=== PATIENT | male | born 1990 | race American Indian/Alaskan Native ===

== ENCOUNTER 2020-04-28 18:59 | Inpatient (IN) | payer OTHER, SELFPAY ==
--- NOTE | 2020-04-28 20:47 | XRay Report ---
CHEST 2 VIEWS 2020 INDICATION / CLINICAL INFORMATION: cough, tachycardia COMPARISON: None available. FINDINGS: SUPPORT DEVICES: None. HEART / MEDIASTINUM: Heart size appears mildly prominent but there is a very poor degree of inspirati on which may influence this appearance. LUNGS / PLEURA: Poor degree of inspiration is seen on 2 images making evaluation more difficult. Basi lar atelectatic changes and crowding of vessels are seen. There is a question of slight perihilar inf iltrate on the right. No dense areas of consolidation are seen. No obvious pleural effusions are note d. Lateral view is blurred by motion. No pneumothorax. ADDITIONAL FINDINGS: No significant additional findings. IMPRESSION: No definite acute infiltrates are seen but this is a limited examination as above. Basila r atelectatic changes are noted. I cannot exclude the possibility of pneumonitis. Follow-up is sugges hema. Signer Name: Marino Armsrtong MD Signed: 04/28/2020 8:43 PM Workstation Name: [id number]
[2020-04-28 22:00] LABS: Basophils % (Auto) 0.4 % (0.0-1.8); Hematocrit 41.1 % (35.5-45.6); Hemoglobin 13.1 gm/dl (11.8-15.2); Lymphocytes # (Auto) 1.3 K/mm3 (1.2-5.4); Lymphocytes % (Auto) 27.1 % (13.4-35.0); Mean Corpuscular HGB Conc 32 % (32-34); Mean Corpuscular Volume 81 fl (84-94); Monocytes # (Auto) 0.4 K/mm3 (0.0-0.8); Monocytes % (Auto) 8.6 % (0.0-7.3); Platelet Count 120 K/mm3 (140-440); Red Blood Count 5.06 M/mm3 (3.65-5.03); Red Cell Distribution Width 13.7 % (13.2-15.2)
[2020-04-28] MEDS ORDERED: ACETAMINOPHEN 500 MG TAB PO ONE (22:16)
--- NOTE | 2020-04-28 22:17 | Emergency Department Report ---
ED General Adult HPI - General Chief complaint: Upper Respiratory Infection Stated complaint: COUGH PUI?: Yes Time Seen by Provider: 04/28/20 22:13 Source: patient, RN notes reviewed Mode of arrival: Ambulatory Limitations: No Limitations - History of Present Illness Initial comments: Please note that for the entire history and physical examination, I had on complete personal protective equipment. Please note that secondary to limitations in the current supply chain, this department in hospital at this moment does not have disposable stethoscope. The patient is a 29-year-old gentleman who is not known to myself previously. He denies chronic medical conditions and reports that he does not have a primary care doctor. He presents to the ER with 2 to 3 days of cough, and "I cannot keep anything down." When clarified, he reports that he is not vomiting, he is not sure if he has a fever, has not lost taste, has not lost smell, but he has a decreased appetite. There is no complaint of headache, neck pain, chest pain, abdominal pain, body aches, irritative, obstructive urinary symptoms. The patient indicates that he feels "weak". He reports that he has been self isolating and self quarantining and has not been exposed to [place] that he is aware of. He is not nauseous at this time -: days(s) Severity scale (0 -10): 0 Consistency: constant Improves with: rest Worsens with: eating, movement - Related Data Allergies Allergy/AdvReac Type Severity Reaction Status Date / Time No Known Allergies Allergy Verified 04/28/20 19:23 ED Review of Systems ROS: Stated complaint: COUGH Other details as noted in HPI Constitutional: malaise, weakness Eyes: denies: eye discharge ENT: congestion Respiratory: cough Cardiovascular: denies: chest pain Gastrointestinal: denies: abdominal pain, nausea, vomiting, diarrhea, constipation Genitourinary: denies: dysuria Musculoskeletal: denies: arthralgia, myalgia Neurological: weakness ED Past Medical Hx - Past Medical History Previous Medical History?: No - Surgical History Past Surgical History?: No - Social History Smoking Status: Never Smoker ED Physical Exam - General Limitations: No Limitations General appearance: alert, in no apparent distress - Head Head exam: Present: atraumatic, normocephalic - Eye Eye exam: Present: normal appearance, EOMI. Absent: nystagmus - ENT ENT exam: Present: normal exam, mucous membranes moist, normal external ear exam - Neck Neck exam: Present: normal inspection, full ROM. Absent: tenderness, meni ngismus - Respiratory Respiratory exam: Present: other (Auscultation not performed secondary to lack of disposable stethoscope). Absent: respiratory distress, stridor, chest wall tenderness, accessory muscle use - Cardiovascular Cardiovascular Exam: Present: regular rate, other (Auscultation not performed secondary to lack of disposable stethoscope). Absent: JVD - GI/Abdominal GI/Abdominal exam: Present: soft. Absent: distended, tenderness, guarding, rebound, rigid, pulsatile mass - Rectal Rectal exam: Present: deferred - Extremities Exam Extremities exam: Present: normal inspection, full ROM, normal capillary refill, other (2+ pulses noted in the bilateral upper and lower extremities. There is no palpable cord. negative Homans sign. Muscular compartments are soft. The pelvis is stable.). Absent: pedal edema, calf tenderness - Back Exam Back exam: Present: normal inspection, full ROM. Absent: tenderness, CVA tenderness (R), CVA tenderness (L), paraspinal tenderness, vertebral tenderness - Neurological Exam Neurological exam: Present: alert, oriented X3, normal gait, other (No facial droop. Tongue midline. Extraocular movements intact bilaterally. Facial sensation intact to light touch in V1, V2, V3 distribution bilaterally. 5 and a 5 strength in 4 extremities. Sensation intact to light touch in 4 extremities.). Absent: motor sensory deficit - Psychiatric Psychiatric exam: Present: normal affect, normal mood - Skin Skin exam: Present: warm, dry, intact, normal color. Absent: rash ED Course Vital Signs 04/28/20 04/28/20 04/28/20 19:21 21:26 22:12 Temperature 98.7 F 102.8 F H Pulse Rate 117 H 94 H Respiratory 18 22 20 Rate Blood Pressure 131/87 139/86 Blood Pressure 139/86 [Right] O2 Sat by Pulse 96 96 97 Oximetry - Reevaluation(s) Reevaluation #1: 04/28/20 22:33 Differential diagnosis, including but not limited to: Novel coronavirus, viral pneumonia versus bacterial pneumonia Assessment and plan: 29-year-old gentleman with fever and tachycardia, nonspecific constitutional symptoms highly suspicious for COVID pathology. At the moment, heart rate 99 to 105 bpm. Saturating at 95, 96% on room air. Laboratory studies were ordered prior to my personal evaluation. They are pe nding at this time. Patient is counseled appropriately and expectantly. He will be given a trial of ambulation. If the patient does not desaturate, we would consider him suitable for trial of outpatient management. Extensive discussion had with patient regarding natural history of COVID. Reevaluation #2: 04/28/20 22:56 During exercise test on portable pulse oximetry, the patient desaturated to 87% on room air. He therefore meets criteria for hospitalization for hypoxemia, likely secondary to COVID pneumonia. Antibiotics, blood cultures, lactic acid ordered. We appreciate that the patient meets systemic inflammatory response syndrome criteria. However, COVID patients are prone to developing acute respiratory distress syndrome, and may experience adverse outcomes with excessive fluid bolus. Therefore, the patient will be given judicious fluid. We will also send laboratory studies to risk stratify patient for cytokine storm. Hospital physician, Dr. David Ball to admit Discussed plan of care with patient, who verbalized understanding, and who is amenable to this plan of care 04/28/20 22:57 - Consultations Consultation #1: 04/28/20 23:[address] Thorpe of infectious disease. She recommends Solu-Medrol 40 mg every 8 hours, type and screen in case patient qualifies for convalescent plasma, supportive care, indicates her group will follow in consultation. ED Medical Decision Making - Lab Data Result diagrams: 04/28/20 21:12 04/28/20 21:12 Vital Signs 04/28/20 04/28/20 04/28/20 19:21 21:26 22:12 Temperature 98.7 F 102.8 F H Pulse Rate 117 H 94 H Respiratory 18 22 20 Rate Blood Pressure 131/87 139/86 Blood Pressure 139/86 [Right] O2 Sat by Pulse 96 96 97 Oximetry Lab Results 04/28/20 Range/Units 21:12 WBC 4.7 (4.5-11.0) K/mm3 RBC 5.06 H (3.65-5.03) M/mm3 Hgb 13.1 (11.8-15.2) gm/dl Hct 41.1 (35.5-45.6) % MCV 81 L (84-94) fl MCH 26 L (28-32) pg MCHC 32 (32-34) % RDW 13.7 (13.2-15.2) % Plt Count 120 L (140-440) K/mm3 Lymph % (Auto) 27.1 (13.4-35.0) % Day % (Auto) 8.6 H (0.0-7.3) % Eos % (Auto) 0.0 (0.0-4.3) % Baso % (Auto) 0.4 (0.0-1.8) % Lymph # 1.3 (1.2-5.4) K/mm3 Day # 0.4 (0.0-0.8) K/mm3 Eos # 0.0 (0.0-0.4) K/mm3 Baso # 0.0 (0.0-0.1) K/mm3 Seg Neutrophils % 63.9 (40.0-70.0) % Seg Neutrophils # 3.0 (1.8-7.7) K/mm3 - Radiology Data Radiology results: report reviewed, image reviewed Print Report Referring Physician: ENID VILLEGAS Patient Name: ELIZABET HOUSE Date of : 1990 Sex: Male Report Date: 2020-04-28 Report Status: [place] [address] XRay Report Signed Patient: ELIZABET HOUSE MR#: [id number] : [birth year] Acct:[id number] Age/Sex: 29 / M ADM Date: 04/28/20 Loc: ED Attending Dr: Ordering Physician: ENID VILLEGAS Date of Service: 04/28/20 Procedure(s): XR chest routine 2V Accession Number(s): [id number] cc: ENID VILLEGAS Fluoro Time In Minutes: CHEST 2 VIEWS 2020 INDICATION / CLINICAL INFORMATION: cough, tachycardia COMPARISON: None available. FINDINGS: SUPPORT DEVICES: None. HEART / MEDIASTINUM: Heart size appears mildly prominent but there is a very poor degree of inspiration which may influence this appearance. LUNGS / PLEURA: Poor degree of inspiration is seen on 2 images making evaluation more difficult. Basilar atelectatic changes and crowding of vessels are seen. There is a question of slight p erihilar infiltrate on the right. No dense areas of consolidation are seen. No obvious pleural effusions are noted. Lateral view is blurred by motion. No pneumothorax. ADDITIONAL FINDINGS: No significant additional findings. IMPRESSION: No definite acute infiltrates are seen but this is a limited examination as above. Basilar atelectatic changes are noted. I cannot exclude the possibility of pneumonitis. Follow-up is suggested. Signer Name: Marino Armstrong MD Signed: 04/28/2020 8:43 PM Workstation Name: [id number] Transcribed By: NEYMAR Dictated By: Marino Armstrong MD Electronically Authenticated By: Marino Armstrong MD Signed Date/Time: 04/28/202042 DD/ 40 TD /TT: Critical Care Time: Yes Critical care time in (mins) excluding proc time.: 35 Critical care attestation.: If time is entered above; I have spent that time in minutes in the direct care of this critically ill patient, excluding procedure time. Critical Care Time: Critical care time includes time spent donning and doffing personal protective equipment, performing history, physical examination, decontaminating after patient encounter, review of laboratory studies, radiographic studies, and managing a patient with signs and symptoms highly suspicious for novel coronavirus ED Disposition Clinical Impression: Suspected 2019 novel coronavirus infection, Hypoxia, SIRS (systemic inflammatory response syndrome) Disposition: -09 OP ADMIT IP TO THIS HOSP Is pt being admited?: Yes Does the pt Need Aspirin: No Condition: Good Referrals: PRIMARY CARE, [Primary Care Provider] - 3-5 Days
[2020-04-28 22:34] LABS: BUN/Creatinine Ratio 11; Blood Urea Nitrogen 14 mg/dL (9-20); Calcium 8.6 mg/dL (8.4-10.2)
[2020-04-28 22:35] LABS: Alanine Aminotransferase 32 units/L (7-56); Albumin 4.3 g/dL (3.9-5); Hemolysis Index 2
[2020-04-28] MEDS ORDERED: cefTRIAXone/NS 1 GM/50 ML 1 GM/50 ML BAG IV ONE (22:55)
[2020-04-28] MEDS ORDERED: AZITHROMYCIN 250 MG TAB PO ONE (22:56)
[2020-04-28] MEDS ORDERED: ONDANSETRON 4 MG/2 ML INJ IV PRN (23:53)
[2020-04-28] MEDS ORDERED: ACETAMINOPHEN 325 MG TAB PO PRN (23:53)
[2020-04-28] MEDS ORDERED: MAGNESIUM HYDROXIDE (MOM) ORAL LIQD UDC PO PRN (23:53)
--- NOTE | 2020-04-29 00:04 | History and Physical Report ---
History of Present Illness Date of examination: 04/28/20 Date of admission: 04/28/20 22:58 Chief complaint: Weakness Fever History of present illness: 29-year-old male presenting to the emergency room today with a 2-day history of cough, nausea , fever and generalized body weakness. Patient denies any sick contacts, no recent travel, and no contact with anyone with COVID-19. Patient denies any chest pain, no abdominal pain, denies any vomiting, no hematuria or dysuria. Denies any headache or dizziness. He has had loss of appetite. Work-up in the emergency room today shows possible pneumonitis. Patient was also hypoxic. Past History Past Medical History: No medical history Past Surgical History: No surgical history Social history: no significant social history Family history: no significant family history Medications and Allergies Allergies Allergy/AdvReac Type Severity Reaction Status Date / Time No Known Allergies Allergy Verified 04/28/20 19:23 Home Medications Medication Instructions Recorded Confirmed Last Taken Type No Known Home Medications [No 04/28/20 04/28/20 Unknown History Reported Home Medications] Active Meds: Active Medications Acetaminophen (Tylenol) 650 mg PO Q4H PRN PRN Reason: Pain MILD(1-3)/Fever >100.5/CESAR Enoxaparin Sodium (Enoxaparin) 40 mg SUB-Q QDAY@2200 KAYCE Sodium Chloride (Nacl 0.9% 1000 Ml) 1,000 mls @ 75 mls/hr IV DIRECT KAYCE Azithromycin 500 mg/ Sodium (Chloride) 250 mls @ 250 mls/hr IV Q24HR KAYCE; Protocol Ceftriaxone Sodium (Rocephin/Ns 2 Gm/100 Ml) 2 gm in 100 mls @ 200 mls/hr IV Q24HR KAYCE; Protocol Magnesium Hydroxide (Milk Of Magnesia) 30 ml PO Q4H PRN PRN Reason: Constipation Methylprednisolone Sodium Succinate (Solu-Medrol) 40 mg IV Q8H KAYCE Ondansetron HCl (Zofran) 4 mg IV Q8H PRN PRN Reason: Nausea And Vomiting Sodium Chloride (Sodium Chloride Flush Syringe 10 Ml) 10 ml IV BID KAYCE Sodium Chloride (Sodium Chloride Flush Syringe 10 Ml) 10 ml IV PRN PRN PRN Reason: LINE FLUSH Review of Systems Constitutional: fever, fatigue, weakness, no chills Ears, nose, mouth and throat: no nasal congestion, no sore throat Cardiovascular: no chest pain, no palpitations Respiratory: no cough, no shortness of breath Gastrointestinal: no abdominal pain, no nausea, no vomiting, no diarrhea Genitourinary Male: no dysuria, no hematuria, no flank pain Musculoskeletal: no neck pain, no low back pain Integumentary: no rash, no pruritis Neurological: no headaches, no confusion Psychiatric: no anxiety, no depression Exam - Constitutional Vitals: Temp Pulse Resp BP Pulse Ox 100.5 F H 103 H 20 123/79 94 04/28/20 23:00 04/28/20 23:00 04/28/20 23:52 04/28/20 23:00 04/28/20 23:00 General appearance: Present: no acute distress, well-nourished - EENT Eyes: Present: PERRL, EOM intact ENT: hearing intact, clear oral mucosa, dentition normal - Neck Neck: Present: supple, normal ROM - Respiratory Respiratory effort: normal Respiratory: bilateral: diminished - Cardiovascular Rhythm: regular Heart Sounds: Present: S1 & S2. Absent: gallop, systolic murmur, diastolic murmur, rub - Extremities Extremities: no ischemia, pulses intact, No edema, Full ROM - Abdominal General gastrointestinal: Present: soft, non-tender, non-distended, normal bowel sounds - Integumentary Integumentary: Present: clear, warm, dry, normal turgor. Absent: jaundice, rash - Musculoskeletal Musculoskeletal: strength equal bilaterally - Psychiatric Psychiatric: appropriate mood/affect, intact judgment & insight - Neurologic Neurologic: no focal deficits, moves all extremities Results - Labs CBC & Chem 7: 04/28/20 21:12 04/29/20 00:02 Labs: Abnormal lab results 04/28/20 04/28/20 Range/Units 21:12 21:12 RBC 5.06 H (3.65-5.03) M/mm3 MCV 81 L (84-94) fl MCH 26 L (28-32) pg Plt Count 120 L (140-440) K/mm3 [place] % (Auto) 8.6 H (0.0-7.3) % AST 56 H (5-40) units/L Alkaline Phosphatase 32 L (35-129) units/L Assessment and Plan - Patient Problems (1) Suspected 2019 novel coronavirus infection Current Visit: Yes Status: Acute Plan to address problem: Patient has been placed on pulmonary and droplet precautions. Place a consult to infectious disease for further evaluation and recommendation. History started on empiric IV antibiotics for possible pneumonia. Patient is also placed on IV Solu-Medrol. (2) Hypoxia Current Visit: Yes Status: Acute Plan to address problem: Possibly secondary to underlying pneumonitis. We will keep O2 saturation greater or equal to 94%. (3) DVT prophylaxis Current Visit: Yes Status: Acute Plan to address problem: Patient placed on subcutaneous Lovenox (4) Full code status Current Visit: Yes Status: Acute
[2020-04-29] MEDS: SODIUM CHLORIDE 0.9% 1000 ML 1,000 ML IV SCH ×2 (03:15→16:59)
[2020-04-29 04:46] LABS: C-Reactive Protein 4.9 mg/dL (0.00-1.30)
--- NOTE | 2020-04-29 07:09 | Consultation ---
History of Present Illness - Reason for Consult Consult date: 04/29/20 R/O covid Requesting physician: RANJITH OWENS - History of Present Illness 29 years old male without any medical history admitted on 04/28/2020 due to 3-day history of poor appetite, chest congestive, mild dry cough and generalized weakness. He denies any exposure to COVID-19 patients. He works delivering food. On arrival, temperature 102.8, HR 117, RR 18, O2 96%, BP 131/87. Initial WBC 4.7. Platelets 120. D-dimer 1441, ferritin 4760, CRP 4.9, LDH 367. AST 56. CK 1368. Chest x-ray slight perihilar infiltrates. In the ED O2 sat dropped to 75%. Review of Systems: positive in bold print General: fever, chills, malaise, poor appetite Cutaneous: rash, pruritus Head: headaches or injury Eyes: changes in vision, eye pain, double vision Ears: ear pain, ear discharge, ringing or hearing loss Nose: nose bleeding, stuffiness Mouth & throat: bleeding gums, horseness, no dental problems, or swollen glands Neck: no pain, node enlargement/lumps, tyroid enlargement or tenderness Respiratory: SOB, cough, MUNOZ, wheezing, sputum, hemoptysis, pleuritic chest pain Cardiovascular: chest pain, leg edema, cyanosis, MUNOZ, orthopnea Musculoskeletal: edema, deformities, pain Gastrointestinal: nausea, vomiting, hematemesis, diarrhea, constipation, melena, bright red blood in stools, fecal incontinence, jaundice Genitourinary/Reproductive: frequent urination, dysuria, hematuria, incontinence Neurogical: seizures, headaches, weakness, paresthesias, loss of speech or vision; memory loss, vertigo, tremors, numbness Psychiatric: stable mood; excessive anxiety, sadness or moodiness Past History Past Medical History: No medical history Past Surgical History: No surgical history Social history: no significant social history Family history: no significant family history Medications and Allergies Allergies Allergy/AdvReac Type Severity Reaction Status Date / Time No Known Allergies Allergy Verified 04/28/20 19:23 Home Medications Medication Instructions Recorded Confirmed Last Taken Type No Known Home Medications [No 04/28/20 04/28/20 Unknown History Reported Home Medications] Active Meds: Active Medications Acetaminophen (Tylenol) 650 mg PO Q4H PRN PRN Reason: Pain MILD(1-3)/Fever >100.5/CESAR Enoxaparin Sodium (Enoxaparin) 40 mg SUB-Q QDAY@2200 KAYCE Sodium Chloride (Nacl 0.9% 1000 Ml) 1,000 mls @ 75 mls/hr IV DIRECT KAYCE Last Admin: 04/29/20 03:15 Dose: 75 mls/hr Documented by: Azithromycin 500 mg/ Sodium (Chloride) 250 mls @ 250 mls/hr IV Q24HR KAYCE; Protocol Ceftriaxone Sodium (Rocephin/Ns 2 Gm/100 Ml) 2 gm in 100 mls @ 200 mls/hr IV Q24HR KAYCE; Protocol Magnesium Hydroxide (Milk Of Magnesia) 30 ml PO Q4H PRN PRN Reason: Constipation Methylprednisolone Sodium Succinate (Solu-Medrol) 40 mg IV Q8H KAYCE Ondansetron HCl (Zofran) 4 mg IV Q8H PRN PRN Reason: Nausea And Vomiting Sodium Chloride (Sodium Chloride Flush Syringe 10 Ml) 10 ml IV BID [facility] Last Admin: 04/29/20 03:15 Dose: 10 ml Documented by: Sodium Chloride (Sodium Chloride Flush Syringe 10 Ml) 10 ml IV PRN PRN PRN Reason: LINE FLUSH Physical Examination - Physical Exam Narrative exam: Physical exam limited given conservation of PPE - Constitutional Vitals: Vital Signs Temp Pulse Resp BP Pulse Ox 98.4 F 83 18 120/76 97 04/29/20 03:06 04/29/20 03:06 04/29/20 04:00 04/29/20 03:06 04/29/20 04:00 Temperature -Last 24 Hours Temperature 98.4 F Temperature 99.2 F Temperature 100.5 F Temperature 103 F Temperature 102.8 F Temperature 102.8 F Temperature 98.7 F Results - Labs CBC & Chem 7: 04/28/20 21:12 04/29/20 00:02 Labs: Abnormal lab results 04/28/20 04/28/20 04/29/20 Range/Units 21:12 21:12 00:02 RBC 5.06 H (3.65-5.03) M/mm3 MCV 81 L (84-94) fl MCH 26 L (28-32) pg Plt Count 120 L (140-440) K/mm3 [place] % (Auto) 8.6 H (0.0-7.3) % D-Dimer 1441.43 H (0-234) ng/mlDDU Ferritin (13.0-400.0) ng/mL AST 56 H (5-40) units/L Alkaline Phosphatase 32 L (35-129) units/L Lactate Dehydrogenase (91-180) units/L Total Creatine Kinase (55-170) units/L C-Reactive Protein (0.00-1.30) mg/dL 04/29/20 04/29/20 Range/Units 00:02 00:02 RBC (3.65-5.03) M/mm3 MCV (84-94) fl MCH (28-32) pg Plt Count (140-440) K/mm3 [place] % (Auto) (0.0-7.3) % D-Dimer (0-234) ng/mlDDU Ferritin 4760.0 H (13.0-400.0) ng/mL AST (5-40) units/L Alkaline Phosphatase (35-129) units/L Lactate Dehydrogenase 367 H (91-180) units/L Total Creatine Kinase 1368 H (55-170) units/L C-Reactive Protein 4.90 H (0.00-1.30) mg/dL Assessment and Plan Cultures: Blood cultures pending Assessment: 29 years old male without any medical history admitted on 04/28/2020 due to 3-day history of poor appetite, chest congestive, mild dry cough and generalized weakness: #Acute sepsis: Present on admission with fever, tachycardia, hypoxia; likely due to bilateral pneumonitis. #Bilateral pneumonitis: High suspicion for COVID-19 pneumonia. O2 sat dropped to 75%, currently on room air. Inflammatory markers markedly elevated disease - D-dimer 1441, ferritin 4760, CRP 4.9, LDH 367. This represents more a cytokine release storm rather than initial viremic phase. Patient reports symptoms started 3 days ago, however, inflammatory markers indicate longer duration of symptoms. Other possibilities, atypical pneumonia, Legionella. #Transient hypoxemia: Likely due to COVID-19 infection. #Elevated LFTs: Likely due to COVID-19 infection. #Thrombocytopenia: Secondary to COVID-19 infection. Recommendations: Follow-up blood cultures Continue ceftriaxone 2 g IV once a day and azithromycin 500 mg p.o. once a day Agree with Solu-Medrol 40 mg IV every 8 given profound initial hypoxia Follow-up COVID-19 test Obtain HIV test, needs consent Obtained Legionella and strep pneumoniae urine antigen Obtain viral hepatitis panel Will follow. Sheri Farias MD Infectious Diseases [facility] [place] [facility] M [phone] O [phone]
[2020-04-29 09:05] LABS: Basophils % (Auto) 0.6 % (0.0-1.8); Eosinophils % (Auto) 0.1 % (0.0-4.3); Hematocrit 39.5 % (35.5-45.6); Hemoglobin 12.8 gm/dl (11.8-15.2); Lymphocytes # (Auto) 1.5 K/mm3 (1.2-5.4); Lymphocytes % (Auto) 37.5 % (13.4-35.0); Mean Corpuscular HGB Conc 32 % (32-34); Mean Corpuscular Volume 82 fl (84-94); Monocytes # (Auto) 0.4 K/mm3 (0.0-0.8); Platelet Count 115 K/mm3 (140-440); Red Blood Count 4.82 M/mm3 (3.65-5.03); Red Cell Distribution Width 13.7 % (13.2-15.2)
[2020-04-29 09:58] LABS: INR 1.26 (0.87-1.13)
[2020-04-29] MEDS ORDERED: AZITHROMYCIN 500 MG in SODIUM CHLORIDE 0.9% 250ML 250 ML IV SCH (10:00)
[2020-04-29 10:06] LABS: BUN/Creatinine Ratio 13; Blood Urea Nitrogen 14 mg/dL (9-20); Calcium 8.5 mg/dL (8.4-10.2); Hemolysis Index 19
[2020-04-29] MEDS: methylPREDNISolone Sod Succinate 40 MG/1 ML INJ IV SCH ×3 (10:20→23:52)
--- NOTE | 2020-04-29 14:28 | Progress Note ---
Assessment and Plan Assessment and plan: 29-year-old male presenting to the emergency room today with a 2-day history of cough, nausea , fever and generalized body weakness. Patient denies any sick contacts, no recent travel, and no contact with anyone with COVID-19. Patient denies any chest pain, no abdominal pain, denies any vomiting, no hem aturia or dysuria. Denies any headache or dizziness. He has had loss of appetite. Work-up in the emergency room today shows possible pneumonitis. Patient was also hypoxic. Hypoxic respiratory failure Acute sepsis Bilateral pneumonitis Rhabdomyolysis Elevated LFTs Thrombocytopenia Plan Continue supportive care follow antibotics and management as directed by ID Continue solumedrol Await covid test result, if negative obtain CT A chest to rule out PE Per ID -Obtain HIV test, Obtained Legionella and strep pneumoniae urine antigen Obtain viral hepatitis panel DVT/GI PROPHY History Interval history: Patient seen and examined this morning resting comfortably states improvement in symptoms. Hospitalist Physical - Physical exam Narrative exam: VITAL SIGNS: Reviewed. GENERAL: The patient appears normally developed, Vital signs as documented. HEAD: No signs of head trauma. EYES: Pupils are equal. Extraocular motions intact. EARS: Hearing grossly intact. MOUTH: Oropharynx is normal. NECK: No adenopathy, no JVD. CHEST: Chest with clear breath sounds bilaterally. No wheezes, rales, or rhonchi. CARDIAC: Regular rate and rhythm. S1 and S2, without murmurs, gallops, or rubs. VASCULAR: No Edema. Peripheral pulses normal and equal in all extremities. ABDOMEN: Soft, non tender and non distended. No rebound or guarding, and no masses palpated. Bowel Sounds normal. MUSCULOSKELETAL: Good range of motion of all major joints. Extremities without clubbing, cyanosis or edema. NEUROLOGIC EXAM: Alert and oriented x 3 No focal sensory or strength de ficits. Speech normal. Follows commands. PSYCHIATRIC: Mood normal. SKIN: detial exam as documented in skin assessment - Constitutional Vitals: Temp Pulse Resp BP Pulse Ox 99.9 F H 86 20 155/77 95 04/29/20 11:29 04/29/20 11:29 04/29/20 11:29 04/29/20 11:29 04/29/20 11:29 General appearance: Present: no acute distress, well-nourished Results - Labs CBC & Chem 7: 04/29/20 08:16 04/29/20 05:58 Labs: Laboratory Last Values WBC 4.1 K/mm3 (4.5-11.0) L 04/29/20 08:16 RBC 4.82 M/mm3 (3.65-5.03) 04/29/20 08:16 Hgb 12.8 gm/dl (11.8-15.2) 04/29/20 08:16 Hct 39.5 % (35.5-45.6) 04/29/20 08:16 MCV 82 fl (84-94) L 04/29/20 08:16 MCH 27 pg (28-32) L 04/29/20 08:16 MCHC 32 % (32-34) 04/29/20 08:16 RDW 13.7 % (13.2-15.2) 04/29/20 08:16 Plt Count 115 K/mm3 (140-440) L 04/29/20 08:16 Lymph % (Auto) 37.5 % (13.4-35.0) H 04/29/20 08:16 [place] % (Auto) 10.0 % (0.0-7.3) H 04/29/20 08:16 Eos % (Auto) 0.1 % (0.0-4.3) 04/29/20 08:16 Baso % (Auto) 0.6 % (0.0-1.8) 04/29/20 08:16 Lymph # 1.5 K/mm3 (1.2-5.4) 04/29/20 08:16 [place] # 0.4 K/mm3 (0.0-0.8) 04/29/20 08:16 Eos # 0.0 K/mm3 (0.0-0.4) 04/29/20 08:16 Baso # 0.0 K/mm3 (0.0-0.1) 04/29/20 08:16 Seg Neutrophils % 51.8 % (40.0-70.0) 04/29/20 08:16 Seg Neutrophils # 2.1 K/mm3 (1.8-7.7) 04/29/20 08:16 PT 15.5 Sec. (12.2-14.9) H 04/29/20 08:16 INR 1.26 (0.87-1.13) H 04/29/20 08:16 D-Dimer 1441.43 ng/mlDDU (0-234) H 04/29/20 00:02 Sodium 138 mmol/L (137-145) 04/29/20 05:58 Potassium 4.1 mmol/L (3.6-5.0) 04/29/20 05:58 Chloride 99 mmol/L (98-107) 04/29/20 05:58 Carbon Dioxide 25 mmol/L (22-30) 04/29/20 05:58 Anion Gap 18 mmol/L 04/29/20 05:58 BUN 14 mg/dL (9-20) 04/29/20 05:58 Creatinine 1.1 mg/dL (0.8-1.5) 04/29/20 05:58 Estimated GFR > 60 ml/min 04/29/20 05:58 BUN/Creatinine Ratio 13 % 04/29/20 05:58 Glucose 96 mg/dL (75-100) 04/29/20 05:58 Lactic Acid 1.20 mmol/L (0.7-2.0) 04/28/20 00:02 Calcium 8.5 mg/dL (8.4-10.2) 04/29/20 05:58 Magnesium 2.10 mg/dL (1.7-2.3) 04/29/20 00:02 Ferritin 4760.0 ng/mL (13.0-400.0) H 04/29/20 00:02 Total Bilirubin 0.70 mg/dL (0.1-1.2) 04/28/20 21:12 AST 56 units/L (5-40) H 04/28/20 21:12 ALT 32 units/L (7-56) 04/28/20 21:12 Alkaline Phosphatase 32 units/L (35-129) L 04/28/20 21:12 Lactate Dehydrogenase 367 units/L (91-180) H 04/29/20 00:02 Total Creatine Kinase 1368 units/L (55-170) H 04/29/20 00:02 C-Reactive Protein 4.90 mg/dL (0.00-1.30) H 04/29/20 00:02 Total Protein 7.8 g/dL (6.3-8.2) 04/28/20 21:12 Albumin 4.3 g/dL (3.9-5) 04/28/20 21:12 Albumin/Globulin Ratio 1.2 % 04/28/20 21:12 Procalcitonin 0.09 ng/mL (<0.15) 04/29/20 00:02 Blood Type A POSITIVE 04/28/20 23:55 Antibody Screen Negative 04/28/20 23:55 Microbiology: Microbiology 04/29/20 Unknown Peripheral/Venous Blood Culture - Preliminary Culture in Progress 04/29/20 00:03 Peripheral/Venous Blood Culture - Preliminary Culture in Progress Still/IV: IV Catheter Type [Right Peripheral IV Forearm] Active Medications - Current Medications Current Medications: Generic Name Dose Route Start Last Admin Trade Name Freq PRN Reason Stop Dose Admin Acetaminophen 650 mg 04/28/20 23:53 Tylenol PO Q4H PRN Pain MILD(1-3)/Fever >100.5/CESAR Azithromycin 500 mg 04/29/20 22:00 Zithromax PO QHS KAYCE Enoxaparin Sodium 40 mg 04/29/20 22:00 Enoxaparin SUB-Q QDAY@2200 KAYCE Sodium Chloride 1,000 mls @ 75 mls/hr 04/28/20 23:45 04/29/20 03:15 Nacl 0.9% 1000 Ml IV 75 mls/hr DIRECT KAYCE Administration Ceftriaxone Sodium 2 gm in 100 mls @ 200 mls/hr 04/29/20 22:00 Rocephin/Ns 2 Gm/100 Ml IV QHS [facility] Protocol Magnesium Hydroxide 30 ml 04/28/20 23:53 Milk Of Magnesia PO Q4H PRN Constipation Methylprednisolone Sodium Succinate 40 mg 04/29/20 08:00 04/29/20 10:20 Solu-Medrol IV 40 mg Q8H KAYCE Administration Ondansetron HCl 4 mg 04/28/20 23:53 Zofran IV Q8H PRN Nausea And Vomiting Sodium Chloride 10 ml 04/29/20 10:00 04/29/20 10:20 Sodium Chloride Flush Syringe 10 Ml IV 10 ml BID KAYCE Administration Sodium Chloride 10 ml 04/28/20 23:53 Sodium Chloride Flush Syringe 10 Ml IV PRN PRN LINE FLUSH
[2020-04-29] MEDS ORDERED: AZITHROMYCIN 250 MG TAB PO SCH (22:00)
[2020-04-29] MEDS ORDERED: ENOXAPARIN 40 MG/0.4 ML INJ SUB-Q SCH (22:00)
[2020-04-29] MEDS ORDERED: cefTRIAXone/NS 2 GM/100 ML 2 GM/100 ML BAG IV SCH (22:00)
[2020-04-30] MEDS: SODIUM CHLORIDE 0.9% 1000 ML 1,000 ML IV SCH (05:42)
[2020-04-30 07:17] LABS: Hematocrit 42.9 % (35.5-45.6); Hemoglobin 13.9 gm/dl (11.8-15.2); Mean Corpuscular HGB Conc 32 % (32-34); Mean Corpuscular Volume 81 fl (84-94); Platelet Count 149 K/mm3 (140-440); Red Blood Count 5.29 M/mm3 (3.65-5.03); Red Cell Distribution Width 13.7 % (13.2-15.2)
[2020-04-30 07:47] LABS: Alanine Aminotransferase 33 units/L (7-56); Albumin 4.1 g/dL (3.9-5); BUN/Creatinine Ratio 13; Blood Urea Nitrogen 13 mg/dL (9-20); Calcium 8.8 mg/dL (8.4-10.2); Hemolysis Index 1
--- NOTE | 2020-04-30 08:43 | Progress Note ---
Assessment and Plan Assessment and plan: 29-year-old male presenting to the emergency room today with a 2-day history of cough, nausea , fever and generalized body weakness. Patient denies any sick contacts, no recent travel, and no contact with anyone with COVID-19. Patient denies any chest pain, no abdominal pain, denies any vomiting, no hem aturia or dysuria. Denies any headache or dizziness. He has had loss of appetite. Work-up in the emergency room today shows possible pneumonitis. Patient was also hypoxic. 04/30: COVID 19 +, Continue supportive care, recheck exercise pulse ox on room air and on oxygen if hypoxic on room air again. Continue steroids, likely to initiate Remdesivir, tociluzimab and COVID plasma Hypoxic respiratory failure Acute sepsis Bilateral pneumonitis Rhabdomyolysis Elevated LFTs Thrombocytopenia COVID 19+ Plan Continue supportive care follow antibotics and management as directed by ID Continue solumedrol Await covid test result, if negative obtain CT A chest to rule out PE Per ID -Obtain HIV test, Obtained Legionella and strep pneumoniae urine antigen Obtain viral hepatitis panel DVT/GI PROPHY Hospitalist Physical - Constitutional Vitals: Temp Pulse Resp BP Pulse Ox 98.9 F 90 20 138/76 96 04/30/20 04:44 04/30/20 04:44 04/30/20 04:44 04/30/20 04:44 04/30/20 04:44 General appearance: Present: no acute distress, well-nourished Results - Labs CBC & Chem 7: 04/30/20 06:37 04/30/20 06:37 Labs: Laboratory Last Values WBC 5.8 K/mm3 (4.5-11.0) 04/30/20 06:37 RBC 5.29 M/mm3 (3.65-5.03) H 04/30/20 06:37 Hgb 13.9 gm/dl (11.8-15.2) 04/30/20 06:37 Hct 42.9 % (35.5-45.6) 04/30/20 06:37 MCV 81 fl (84-94) L 04/30/20 06:37 MCH 26 pg (28-32) L 04/30/20 06:37 MCHC 32 % (32-34) 04/30/20 06:37 RDW 13.7 % (13.2-15.2) 04/30/20 06:37 Plt Count 149 K/mm3 (140-440) 04/30/20 06:37 Lymph % (Auto) 37.5 % (13.4-35.0) H 04/29/20 08:16 [place] % (Auto) 10.0 % (0.0-7.3) H 04/29/20 08:16 Eos % (Auto) 0.1 % (0.0-4.3) 04/29/20 08:16 Baso % (Auto) 0.6 % (0.0-1.8) 04/29/20 08:16 Lymph # 1.5 K/mm3 (1.2-5.4) 04/29/20 08:16 [place] # 0.4 K/mm3 (0.0-0.8) 04/29/20 08:16 Eos # 0.0 K/mm3 (0.0-0.4) 04/29/20 08:16 Baso # 0.0 K/mm3 (0.0-0.1) 04/29/20 08:16 Seg Neutrophils % 51.8 % (40.0-70.0) 04/29/20 08:16 Seg Neutrophils # 2.1 K/mm3 (1.8-7.7) 04/29/20 08:16 PT 15.5 Sec. (12.2-14.9) H 04/29/20 08:16 INR 1.26 (0.87-1.13) H 04/29/20 08:16 D-Dimer 536.40 ng/mlDDU (0-234) H 04/30/20 06:37 Sodium 141 mmol/L (137-145) 04/30/20 06:37 Potassium 4.3 mmol/L (3.6-5.0) 04/30/20 06:37 Chloride 103.4 mmol/L (98-107) 04/30/20 06:37 Carbon Dioxide 25 mmol/L (22-30) 04/30/20 06:37 Anion Gap 17 mmol/L 04/30/20 06:37 BUN 13 mg/dL (9-20) 04/30/20 06:37 Creatinine 1.0 mg/dL (0.8-1.5) 04/30/20 06:37 Estimated GFR > 60 ml/min 04/30/20 06:37 BUN/Creatinine Ratio 13 % 04/30/20 06:37 Glucose 130 mg/dL (75-100) H 04/30/20 06:37 Lactic Acid 1.20 mmol/L (0.7-2.0) 04/28/20 00:02 Calcium 8.8 mg/dL (8.4-10.2) 04/30/20 06:37 Magnesium 2.10 mg/dL (1.7-2.3) 04/29/20 00:02 Ferritin 4760.0 ng/mL (13.0-400.0) H 04/29/20 00:02 Total Bilirubin 0.60 mg/dL (0.1-1.2) 04/30/20 06:37 AST 49 units/L (5-40) H 04/30/20 06:37 ALT 33 units/L (7-56) 04/30/20 06:37 Alkaline Phosphatase 32 units/L (35-129) L 04/30/20 06:37 Lactate Dehydrogenase 430 units/L (91-180) H 04/30/20 06:37 Total Creatine Kinase 1368 units/L (55-170) H 04/29/20 00:02 C-Reactive Protein 3.30 mg/dL (0.00-1.30) H 04/30/20 06:37 Total Protein 7.6 g/dL (6.3-8.2) 04/30/20 06:37 Albumin 4.1 g/dL (3.9-5) 04/30/20 06:37 Albumin/Globulin Ratio 1.2 % 04/30/20 06:37 Procalcitonin 0.09 ng/mL (<0.15) 04/29/20 00:02 Coronavirus (PCR) Positive (Negative) A 04/28/20 Unknown Blood Type A POSITIVE 04/28/20 23:55 Antibody Screen Negative 04/28/20 23:55 Microbiology: Microbiology 04/29/20 Unknown Peripheral/Venous Blood Culture - Preliminary NO GROWTH AFTER 24 HOURS 04/29/20 00:03 Peripheral/Venous Blood Culture - Preliminary NO GROWTH AFTER 24 HOURS Still/IV: Voiding Method Toilet IV Catheter Type [Left INT / Saline Lock Antecubital] IV Catheter Type [Right Peripheral IV Forearm] Active Medications - Current Medications Current Medications: Generic Name Dose Route Start Last Admin Trade Name Freq PRN Reason Stop Dose Admin Acetaminophen 650 mg 04/28/20 23:53 Tylenol PO Q4H PRN Pain MILD(1-3)/Fever >100.5/CESAR Azithromycin 500 mg 04/29/20 22:00 04/29/20 23:52 Zithromax PO 500 mg QHS KAYCE Administration Enoxaparin Sodium 40 mg 04/29/20 22:00 04/29/20 21:29 Enoxaparin SUB-Q 40 mg QDAY@2200 KAYCE Administration Sodium Chloride 1,000 mls @ 75 mls/hr 04/28/20 23:45 04/30/20 05:42 Nacl 0.9% 1000 Ml IV 75 mls/hr DIRECT KAYCE Administration Ceftriaxone Sodium 2 gm in 100 mls @ 200 mls/hr 04/29/20 22:00 04/29/20 21:30 Rocephin/Ns 2 Gm/100 Ml IV 200 mls/hr QHS KAYCE Administration Protocol Magnesium Hydroxide 30 ml 04/28/20 23:53 Milk Of Magnesia PO Q4H PRN Constipation Methylprednisolone Sodium Succinate 40 mg 04/29/20 08:00 04/29/20 23:52 Solu-Medrol IV 40 mg Q8H KAYCE Administration Ondansetron HCl 4 mg 04/28/20 23:53 Zofran IV Q8H PRN Nausea And Vomiting Sodium Chloride 10 ml 04/29/20 10:00 04/29/20 21:30 Sodium Chloride Flush Syringe 10 Ml IV 10 ml BID KAYCE Administration Sodium Chloride 10 ml 04/28/20 23:53 Sodium Chloride Flush Syringe 10 Ml IV PRN PRN LINE FLUSH
--- NOTE | 2020-04-30 10:04 | Cat Scan Report ---
CTA CHEST WITH IV CONTRAST INDICATION: Shortness of breath. TECHNIQUE: Axial CT images were obtained through the chest after injection of 100 mL Omnipaque 350 IV contrast. 3 plane MIP reconstructions were produced. All CT scans at this location are performed using CT dose reduction for ALARA by means of automated exposure control. COMPARISON: Chest x-ray on 04/28/2020 FINDINGS: Pulmonary Arteries: No pulmonary emboli. Lungs: There are extensive diffuse patchy peripheral areas of groundglass opacity with inflammatory a ppearance. There is no pleural effusion or pneumothorax. Trachea and Bronchi: No significant abnormality. Heart and Pericardium: No significant abnormality. Vasculature: No significant abnormality. Lymphatics: No lymphadenopathy. Additional Findings: None. Upper Abdomen: No acute findings. Skeletal Structures: No significant osseous abnormality. IMPRESSION: 1. No CT evidence for pulmonary embolism. 2. Extensive bilateral patchy areas of groundglass opacity in both lungs with appearance suggesting p robable atypical infectious process, possibly viral. Signer Name: Jl Yee MD Signed: 04/30/2020 10:00 AM Workstation Name: [id number]
[2020-04-30] MEDS: methylPREDNISolone Sod Succinate 40 MG/1 ML INJ IV SCH (12:11)
[2020-04-30 13:15] VITALS: BP 142/87
--- NOTE | 2020-04-30 13:39 | Progress Note ---
Assessment and Plan Cultures: Blood cultures no growth today Assessment: 29 years old male without any medical history admitted on 04/28/2020 due to 3-day history of poor appetite, chest congestive, mild dry cough and gene ralized weakness: #Acute sepsis: Present on admission with fever, tachycardia, hypoxia; likely due to bilateral pneumonitis. #COVID pneumonitis: Initial O2 sat dropped to 75%, currently on room air. Inflammatory markers markedly elevated disease - D-dimer 1441, ferritin 4760, CRP 4.9, LDH 367. This represents more a cytokine release storm rather than initial viremic phase. Patient reports symptoms started 3 days ago, however, inflammatory markers indicate longer duration of symptoms. Other possibilities, atypical pneumonia, Legionella. #Transient hypoxemia: Likely due to COVID-19 infection. #Elevated LFTs: Likely due to COVID-19 infection. #Thrombocytopenia: Secondary to COVID-19 infection. Recommendations: Exercise pulse oximeter - O2 sats after 6 minutes walk test inside room, document in chart Stop ceftriaxone and azithromycin Continue Solu-Medrol 40 mg IV every 8 H If he passes walking test sat> 94% okay to discharge on dexamethasone 6 mg p.o. daily [address] Livingston Will follow. Sheri Farias MD Infectious Diseases Check [facility] [phone] O [phone] Subjective Date of service: 04/30/20 Principal diagnosis: COVID Interval history: Patient feels better, his been room air no oxygen need, denies any shortness of breath Objective - Exam Narrative Exam: Physical exam limited given conservation of PPE - Constitutional Vitals: Vital Signs Temp Pulse Resp BP Pulse Ox 99.5 F 107 H 20 142/87 93 04/30/20 11:47 04/30/20 11:47 04/30/20 11:47 04/30/20 11:47 04/30/20 11:47 Temperature -Last 24 Hours Temperature 99.5 F Temperature 98.9 F Temperature 99.0 F Temperature 99.9 F - Labs CBC & Chem 7: 04/30/20 06:37 04/30/20 06:37 Labs: Abnormal lab results 04/28/20 04/30/20 04/30/20 Range/Units Unknown 06:37 06:37 RBC 5.29 H (3.65-5.03) M/mm3 MCV 81 L (84-94) fl MCH 26 L (28-32) pg D-Dimer 536.40 H (0-234) ng/mlDDU Glucose (75-100) mg/dL Ferritin (13.0-400.0) ng/mL AST (5-40) units/L Alkaline Phosphatase (35-129) units/L Lactate Dehydrogenase (91-180) units/L C-Reactive Protein (0.00-1.30) mg/dL Coronavirus (PCR) Positive A (Negative) 04/30/20 04/30/20 Range/Units 06:37 06:37 RBC (3.65-5.03) M/mm3 MCV (84-94) fl MCH (28-32) pg D-Dimer (0-234) ng/mlDDU Glucose 130 H (75-100) mg/dL Ferritin > 2000.0 H (13.0-400.0) ng/mL AST 49 H (5-40) units/L Alkaline Phosphatase 32 L (35-129) units/L Lactate Dehydrogenase 430 H (91-180) units/L C-Reactive Protein 3.30 H (0.00-1.30) mg/dL Coronavirus (PCR) (Negative)
--- NOTE | 2020-04-30 14:29 | Discharge Summary ---
Providers - Providers Date of Admission: 04/29/20 16:34 Attending physician: RACHEL JOHNSON MD 04/28/20 23:13 Consult to Physician [CONS] Urgent Comment: Dr. Fairbanks spoke with Dr. Thorpe @ [id number] Consulting Provider: ANT HUNT Physician Instructions: Reason For Exam: covid Primary care physician: BALL MAKER Hospitalization Condition: Good Hospital course: 29-year-old male presenting to the emergency room today with a 2-day history of cough, nausea , fever and generalized body weakness. Patient denies any sick contacts, no recent travel, and no contact with anyone with COVID-19. Patient denies any chest pain, no abdominal pain, denies any vomiting, no hematuria or dysuria. Denies any headache or dizziness. He has had loss of appetite. Work-up in the emergency room today shows possible pneumonitis. Patient was also hypoxic. 04/30: COVID 19 +, Continue supportive care, recheck exercise pulse ox on room air and on oxygen if hypoxic on room air again. Continue steroids, likely to initiate Remdesivir, tociluzimab and COVID plasma Room air sat 100%, exercise pulse ox 96% on room air. Advised patient to continue social distancing and also use mask at home. Hypoxic respiratory failure Acute sepsis Bilateral pneumonitis Rhabdomyolysis Elevated LFTs Thrombocytopenia COVID 19+ Disposition: DC-30 STILL A PATIENT Exam - Constitutional Vitals: Temp Pulse Resp BP Pulse Ox 99.5 F 107 H 20 142/87 93 04/30/20 11:47 04/30/20 11:47 04/30/20 11:47 04/30/20 11:47 04/30/20 11:47 Plan Activity: advance as tolerated, fall precautions Diet: low fat Special Instructions: record daily weights, record daily BP diary Additional Instructions: Follow-up with primary care physician in 2 weeks, educated about worsening symptoms for COVID-19 to return to the emergency room. Continue mask wearing and socail distancing. Follow up with: HARI ZACARIAS MD [Primary Care Provider] - 3-5 Days ANT HUNT MD [Staff Physician] - 14 Days Prescriptions: dexAMETHasone [Dexamethasone] 6 mg PO DAILY #10 tablet
== END 2020-04-30 16:10 | disposition home or self-care (01) | DRG 871 ==
LOC: ED 18:59 → 3A 22:58 → OBSVTOIN 04-29 16:34
PROVIDERS: ADMIT Internal Medicine Geriatric Medicine; ATTEND Internal Medicine
DX: A41.89 Other specified sepsis (principal); U07.1 COVID-19; J96.01 Acute respiratory failure with hypoxia; J12.89 Other viral pneumonia; M62.82 Rhabdomyolysis; D69.6 Thrombocytopenia, unspecified; Z79.899 Other long term (current) drug therapy
CPT/HCPCS: 36415; 71046; 71275; 80048; 80053; 82140; 82550; 82728; 82947; 83615; 83735; 84145; 85025; 85027; 85379; 85610; 86140; 86850; 86900; 86901; 87040; G0378; J0696; J1650; J2920; J7030; Q9967; U0003-CS